=== PATIENT | male | born 1955 | race Two or more races ===

== ENCOUNTER 2022-06-02 19:43 | Emergency (ER) | payer MEDICAID, OTHER ==
[~2022-06-02] VITALS: Ht 170.2 cm; Wt 90.7 kg
--- NOTE | 2022-06-02 20:18 | NUR ---
Patient walked into ER with a steady gait. NAD noted. A/Ox4.
[2022-06-02] MEDS ORDERED: FINA5TAB11 PO (20:36)
[2022-06-02] MEDS ORDERED: LIDOCAINE 2% (GLYDO= UROJET) 10 ML JELLY MM ONE (20:45)
[2022-06-02 20:58] LABS: HEMATOCRIT 37.7 % (36.7-47.1); MEAN CORPUSCULAR HEMOGLOBIN 30.2 uug (23.8-33.4); MEAN CORPUSCULAR VOLUME 88.7 fL (73.0-96.2); PLATELET COUNT (AUTO) 220 K/uL (152-348)
--- NOTE | 2022-06-02 21:00 | NUR ---
Patient is a/ox4, NAD noted
[2022-06-02 21:15] LABS: CREATININE 0.9 mg/dL (0.6-1.3); POTASSIUM 3.9 mmol/L (3.5-5.1)
[2022-06-02 21:18] LABS: *COLOR,URINE RED (YELLOW); PH,URINE 8.5 (5.0-8.0)
[2022-06-02 21:19] LABS: *BILIRUBIN,URIN 1+ (NEGATIVE); *BLOOD, URINE 3+ (NEGATIVE); *KETONES,URINE NEGATIVE (NEGATIVE); LEUKOCYTE ESTERASE ,URINE 1+ (NEGATIVE); NITRITE, URINE NEGATIVE (NEGATIVE); UGLUCOSE NEGATIVE (NEGATIVE)
[2022-06-02 21:20] LABS: BILIRUBIN,DIRECT 0.1 mg/dL (0.0-0.2); BILIRUBIN,TOTAL 0.4 mg/dL (0.2-1.0); TOTAL PROTEIN, SERUM 8.8 g/dL (6.4-8.2)
[2022-06-02 21:20] LABS: *CLARITY,URINE BLOODY (CLEAR)
[2022-06-02 21:24] LABS: RBC,URINE TNTC /HPF (0-3)
[2022-06-02 21:26] LABS: BACTERIA,URINE MANY /HPF (NONE SEEN); SQUAMOUS EPITHELIAL CELL,UR NONE SEEN /HPF (NONE SEEN)
[2022-06-02] MEDS ORDERED: NITROFURANTOIN/NITROFURAN MAC 100 MG CAPSULE PO ONE ×2 (22:00→22:10)
[2022-06-02] MEDS ORDERED: NITR-84 PO (22:58)
--- NOTE | 2022-06-03 00:09 | NUR ---
called [place] RN - [employer] for taxi voucher
--- NOTE | 2022-06-03 00:32 | NUR ---
Patient discharged to stable condition. Written and verbal after care instructions given. Patient verbalizes understanding of instructions. Stressed follow up or return to ER for worsening s/s. Patient in the waiting room waiting for taxi
[2022-06-03 00:33] VITALS: BP 145/87
== END 2022-06-03 00:33 | disposition home or self-care (01) ==
LOC: ER 19:47
DX: R31.0 Gross hematuria (principal); N40.1 Benign prostatic hyperplasia with lower urinary tract symptoms; Z20.822 Contact with and (suspected) exposure to COVID-19
CPT/HCPCS: 36415; 51702; 85025; 85730; 87086; A4663